=== PATIENT | female | born 1980 | race Two or more races ===

== ENCOUNTER 2016-11-11 23:38 | Emergency (ER) | payer MEDICAID ==
[2016-11-11] MEDS ORDERED: NS 1,000 ML IV SCH (23:45)
[2016-11-11] MEDS ORDERED: SODIUM CHLORIDE 0.9% 10 ML FLUSH FLUSH PRN (23:48)
[2016-11-11] MEDS ORDERED: NS 1,000 ML IV ONE (23:48)
[2016-11-11] MEDS ORDERED: MORPHINE 4 MG/ML INJECTION IV ONE (23:48)
[2016-11-11] MEDS ORDERED: ONDANSETRON HCL 4 MG/2 ML VIAL IV ONE (23:48)
--- NOTE | 2016-11-11 23:51 | EDPRACDOC ---
- General Information Stated Complaint: ABD PAIN Time Seen by Provider: 11/11/16 23:43 Information Source: Patient Home Medications: Home Medications Ciprofloxacin HCl [Cipro] 500 mg PO BID #14 tab 11/12/16 Ketorolac Tromethamine [Toradol] 10 mg PO Q6H PRN #15 tab 11/12/16 Oxycodone Immediate Release [Oxycodone Immediate Release (OxyIR)] 5 - 10 mg PO Q6H PRN #30 tab 11/12/16 Promethazine [Phenergan] 25 mg PO Q4-6H PRN #15 tab 11/12/16 Allergies/Adverse Reactions: Allergies Allergy/AdvReac Type Severity Reaction Status Date / Time sulfamethoxazole Allergy Severe Anaphylaxis Verified 11/11/16 23:54 [From Bactrim] * trimethoprim [From Bactrim] Allergy Severe Anaphylaxis Verified 11/11/16 23:54 * tramadol Allergy Itching Verified 11/11/16 23:54 - History of Present Illness Onset: 1 day HPI: Pt c/o R flank pain radiating to RLQ with diaphoresis and n/v x 1 day. Denies fever, cp, sob, vaginal bleeding or discharge, rash. Pain Location: Reports: Right, Flank Pain Radiates To: Reports: Other (RLQ) Pain Caused By: Reports: Spontaneous Circumstances: Reports: Unknown Currently ?: No Pain Severity: Reports: Moderate Pain Quality: Reports: Sharp, Stabbing Worsened By: Reports: Nothing Associated Signs and Symptoms: Reports: Abdominal Pain, Nausea, Vomiting ED Past Medical History - History Reviewed Yes Nurses notes reviewed and agree except as marked - Patient Medical History Psychological History: Denies: Depression Surgical History: Reports: Other (CSXN TIMES 2) - Social Medical History Smoking Status: Heavy tobacco smoker (5 or more cigarettes/day or daily pipe/ cigar) ETOH: Social Substance Abuse: None EDM Review of Systems - Review of Systems Constitutional: Diaphoresis. negative: No Symptoms Reported, Chills, Fever, Fatigue, Loss of Appetite, Weakness Ears: No Symptoms Reported. negative: Pain, Hearing Loss, Drainage, Ear Pulling Throat: No Symptoms Reported. negative: Pain, Swelling Nose: No Symptoms Reported. negative: Congestion, Bleeding, Discharge, Injection, Swelling, Deformity, Ecchymosis, Tender, Abrasion, Laceration Mouth: No Symptoms Reported. negative: Pain, Drooling Respiratory: No Symptoms Reported. negative: Cough, Brassy Cough, Barky Cough, Shortness of Breath, Wheezing, Hemoptysis Cardiovascular: No Symptoms Reported. negative: Chest Pain, Palpitations, Syncope, Edema, Orthopnea, PND, Skin Mottling, Cyanosis Gastrointestinal: Nausea, Pain, Vomiting Genitourinary: Flank Pain Neurological: No Symptoms Reported. negative: Headache, Dizziness, Seizure, Numbness, Weakness, Speech Difficulty, Gait Difficulty Musculoskeletal: Back Integumentary: No Symptoms Reported. negative: Itching, Rash, Bruising, Wound Allergic/Immunologic: No Symptoms Reported. negative: Hives, Itching Hematologic: No Symptoms Reported. negative: Lymphadenopathy, Easy Bruising, Easy Bleeding Psychiatric: No Symptoms Reported. negative: Anxiety, Depression, Hallucinations, Insomnia, Suicidal - Physical Exam Constitutional: Alert, Distress (mild) Oriented to: Time, Person, Place Last recorded Vital Signs: Oxygen Pulse Oxygen Saturation O2 Device Oxygen Flow Rate Fraction of Inspired Oxygen ( FIO2) - HEENT Head: Normal ( normocephalic) - Respiratory/Cardiovascular Respiratory: Normal - CTA (BBS clear to auscultation without adventitious sounds ) Cardiovascular: Normal (RRR without murmur, gallop or rub) - GI Auscultation: Normal (NABS) Palpation: Normal (Soft,No rebound or guarding, non distended) Tenderness: Non tender Arroyo's Sign: Negative - Musculoskeletal Back: Normal (Non-Tender) Extremities: Normal (Normal tone, Pulses 2+ No cyanosis or edema, FROM) - Integumentary Skin: Normal, Warm, Dry Lymphatics: Normal (no adenopathy) - Neurologic Memory Impaired: Normal Motor Function: Normal (Normal tone, Pulses 2+ No cyanosis or edema, FROM) Mood Description: Normal Perception: Normal ED Back Exam - Neurologic Motor Deficit: None (strength 5/5, sensation nl) Reflexes: Normal (CN II-X11 intact) - Musculoskeletal Cervical: Normal Thoracic: Normal Lumbar: Normal Midline: Normal Paraspinous: Normal Straight Leg Raise: Negative Pelvis: Normal - Differential Diagnosis Appendicitis, Musculoskeletal pain, Strain, Urolithiasis, Urinary tract infection - Results 11/11/16 23:40 11/11/16 23:40 11/12/16 01:29 Laboratory Results - last 24 hr 11/11/16 11/11/16 11/12/16 23:40 23:40 00:30 WBC 14.4 H RBC 4.37 Hgb 12.2 Hct 37.5 MCV 86 MCH 27.9 MCHC 32.6 L RDW 14.5 Plt Count 276 MPV 8.5 Neut % (Auto) 67.6 Lymph % (Auto) 24.2 [place] % (Auto) 6.7 Eos % (Auto) 0.8 Baso % (Auto) 0.7 Absolute Neuts (auto) 9.65 H Absolute Lymphs (auto) 3.46 Sodium 143 Potassium 3.5 Chloride 106 Carbon Dioxide 25 Anion Gap 16 BUN 18 H Creatinine 0.80 Estimated GFR (MDRD) > 60 Glucose 110 H Calculated Osmolality 278 Calcium 9.7 Total Bilirubin 0.4 AST 20 ALT 27 Alkaline Phosphatase 69 Total Protein 7.9 Albumin 4.4 Urine Color Urine Clarity Urine pH Ur Specific [place] Urine Protein Urine Glucose (UA) Urine Ketones Urine Occult Blood Urine Nitrite Urine Bilirubin Urine Urobilinogen Ur Leukocyte Esterase Urine RBC Urine WBC Ur Epithelial Cells Urine Bacteria Hyaline Casts Urine Mucus Urine Test Neg 11/12/16 00:30 WBC RBC Hgb Hct MCV MCH MCHC RDW Plt Count MPV Neut % (Auto) Lymph % (Auto) [place] % (Auto) Eos % (Auto) Baso % (Auto) Absolute Neuts (auto) Absolute Lymphs (auto) Sodium Potassium Chloride Carbon Dioxide Anion Gap BUN Creatinine Estimated GFR (MDRD) Glucose Calculated Osmolality Calcium Total Bilirubin AST ALT Alkaline Phosphatase Total Protein Albumin Urine Color Yellow Urine Clarity Sl cldy Urine pH 5.0 Ur Specific [place] 1.030 Urine Protein 1+ H Urine Glucose (UA) Neg Urine Ketones 2+ H Urine Occult Blood 3+ H Urine Nitrite Neg Urine Bilirubin Neg Urine Urobilinogen <2.0 Ur Leukocyte Esterase Trace H Urine RBC Tntc H Urine WBC 10-20 H Ur Epithelial Cells 2+ Urine Bacteria 1+ H Hyaline Casts 2-5 H Urine Mucus Large Urine Test - Diagnostic Imaging Abdomen Image interpreted by: Radiologist IMPRESSION: 1. 2.5 mm stone in the distal right ureter causes moderate right hydroureteronephrosis. 2. No other acute finding. No intrarenal stones. - Departure Disposition: Home Condition: Stable Final Diagnosis: Right ureteral calculus UTI (urinary tract infection) Qualifiers: Urinary tract infection type: acute cystitis Hematuria presence: with hematuria Qualified Code(s): N30.01 - Acute cystitis with hematuria Instructions: Urinary Tract Infection in Women (ED), Dysuria, Kidney Stones (ED ) Education/Counseling Given To: Patient Education/Counseling Given Regarding: Diagnosis, Treatment, Follow Up Referrals: None,No Provider [Primary Care Provider] - One Week Conor Bay MD [Staff Physician] - One Week Prescriptions: Ciprofloxacin HCl [Cipro] 500 mg PO BID #14 tab Ketorolac Tromethamine [Toradol] 10 mg PO Q6H PRN #15 tab PRN Reason: Pain Oxycodone Immediate Release [Oxycodone Immediate Release (OxyIR)] 5 - 10 mg PO Q6H PRN #30 tab PRN Reason: Pain Promethazine [Phenergan] 25 mg PO Q4-6H PRN #15 tab PRN Reason: Nausea/Vomiting Additional Instructions: Increase fluids. Return for worse or different symptoms.
[2016-11-11 23:53] VITALS: BMI 33.3
[2016-11-11 23:54] VITALS: TEMP 98.3
[2016-11-12] MEDS ORDERED: HYDROmorphone 1 MG INJECTION IV ONE (00:11)
[2016-11-12 00:13] LABS: AUTOMATED BASOPHIL 0.7 % (0-2); AUTOMATED EOSINOPHIL 0.8 % (0-5); AUTOMATED LYMPH 24.2 % (17-44); AUTOMATED MONOCYTE 6.7 % (3-10); AUTOMATED NEUTROPHIL 67.6 % (45-76); MPV 8.5 fL (7.4-10.4)
[2016-11-12 00:22] LABS: BLOOD UREA NITROGEN 18 MG/DL (7-17); CALCIUM 9.7 MG/DL (8.4-10.2); CALCULATED OSMOLALITY 278 MOs/Kg (270-290); CHLORIDE 106 mEq/L (98-107); GLUCOSE 110 MG/DL (70-99); SODIUM LEVEL 143 mEq/L (137-146); TOTAL PROTEIN 7.9 G/DL (6.3-8.2)
[2016-11-12 00:57] LABS: LEUKOCYTES/URINE TRACE (NEGATIVE); NITRITE/URINE NEG (NEGATIVE); RBC/URINE TNTC (0-5); URINE OCCULT BLOOD 3+ (NEG/TRACE)
--- NOTE | 2016-11-12 01:21 | DIRPT ---
CLINICAL DATA: Right flank pain and hematuria for 1 day. EXAM: CT ABDOMEN AND PELVIS WITHOUT CONTRAST TECHNIQUE: Multidetector CT imaging of the abdomen and pelvis was performed following the standard protocol without IV contrast. COMPARISON: None. FINDINGS: Lung bases: Clear. Heart normal size. Liver, spleen, gallbladder, pancreas, adrenal glands: Normal. Kidneys, ureters, bladder: There is moderate right hydroureteronephrosis due to a 2.5 mm stone in the distal right ureter. There are no intrarenal stones. No other ureteral stones. No left hydronephrosis. 1.8 cm low-density lesion arises from the upper pole the right kidney consistent cysts. No other renal masses. Bladder is unremarkable. Uterus and adnexa: Normal. Lymph nodes: No adenopathy. Ascites: None. Gastrointestinal: Unremarkable. Normal appendix visualized. Musculoskeletal: Unremarkable. IMPRESSION: 1. 2.5 mm stone in the distal right ureter causes moderate right hydroureteronephrosis. 2. No other acute finding. No intrarenal stones. Electronically Signed By: Dimas Sweet M.D. On: 11/12/2016 01:18
[2016-11-12] MEDS ORDERED: CEFTRIAXONE 1 GM in D5W 100 ML IV ONE (01:31)
[2016-11-12] MEDS ORDERED: NS 1,000 ML IV ONE (01:31)
[2016-11-12 02:50] VITALS: BP 128/76; PULSE 70
== END 2016-11-12 02:45 | disposition home or self-care (01) ==
LOC: ED 23:38
DX: N30.01 Acute cystitis with hematuria (principal); N20.0 Calculus of kidney
CPT/HCPCS: 36415; 74176; 80053; 81001; 81025; 85025; 96361; 96365; 96375; 99284; J0696; J1170; J2270; J2405; J7060